=== PATIENT | female | born 1990 | race Caucasian/White ===

== ENCOUNTER → 2023-08-04 09:38 | Outpatient (CLI) | payer OTHER, SELFPAY ==
--- NOTE | 2023-08-04 09:41 | DI.US.S_ITS ---
PROCEDURE: US PELVIC COMPLETE INDICATIONS: PELVIC AND PERINEAL PAIN TECHNIQUE: Real-time scanning was performed of the pelvic organs, with image documentation. Additional endovaginal scanning was necessary due to incomplete visualization of the adnexal and endometrial structures by transabdominal scanning. COMPARISON: None. FINDINGS: Uterus: Uterus is retroverted and normal in size at 8.3 x 4.8 x 4.8 cm. The myometrium is homogeneous. The endometrium measures near the upper limits of normal at 15 mm. The IUD is seen at its expected location. Ovaries: The right ovary measures 3.8 x 2.4 x 1.9 cm, with a calculated ovarian volume of 9.1 cc. The left ovary measures 3.5 x 3.2 x 2.1 cm, with a calculated ovarian volume of 12.3 cc. The ovaries have a normal sonographic appearance. No adnexal masses are seen. More than 12 follicles can be seen involving the left ovary. Other: There is a [id number] amount of free fluid seen within the pelvic cul-de-sac and also seen involving both adnexal regions. At the area of pain, there is a scar seen within the superficial abdomen. No focal abnormalities are seen at this site. IMPRESSION: At the site of pain, there is a scar seen, without a significant focal ultrasound abnormality. The IUD is seen at its expected location. More than 12 follicles can be seen involving the left ovary. Please consider polycystic ovarian syndrome in the appropriate clinical context. We strive to produce accurate, complete, and clear reports of imaging services. To assist us in improving patient care, this report was composed using standard report templates and voice recognition software. Therefore, it may contain abnormal punctuation, insertions and/or omissions. Occasional wrong-word or sound-alike substitutions may occur. Though we review the report and make efforts to correct it, we do recommend that the report be read carefully in proper context to recognize any text inaccuracies. Dictated by: Oj Katz M.D. on 08/04/2023 at 12:38 Approved by: Oj Katz M.D. on 08/04/2023 at 12:40
== END ==
PROVIDERS: Referring Provider Student in an Organized Health Care Education/Training Program; Visit Provider Student in an Organized Health Care Education/Training Program
DX: R10.2 Pelvic and perineal pain (principal); Z97.5 Presence of (intrauterine) contraceptive device
CPT/HCPCS: 76830; 76856